=== PATIENT | female | born 1990 | race Caucasian/White ===

== ENCOUNTER 2023-08-28 16:57 | Emergency (ER) | payer OTHER, SELFPAY ==
[2023-08-28 17:05] VITALS: BP 117/80
--- NOTE | 2023-08-28 17:56 | ED.GENMED ---
History of Present Illness
General
Chief Complaint: Fainting/Passed Out
Source: patient
Time Seen by Provider: 08/28/23 17:43
Travel History
Have you had any contact with someone who has COVID-19?: No
Do you have any symptoms of coronavirus? Fever > 100 degrees, chills, cough, shortness of breath, sore throat, loss of taste or smell, muscle aches, or headache?: No
History of Present Illness
History of Present Illness:
33-year-old female presenting to the emergency department for evaluation after a syncopal episode around 230 this afternoon. Patient reports that multiple family members have been home sick with upper respiratory symptoms and GI symptoms over the
last few days. Is currently visiting this area for a work trip and staying with her in-laws. She states today she woke up feeling achy and generally unwell and had been sleeping for most of the day and had not drank or eaten anything. She was
changing their infant on the changing table when she started to feel as if she were going to pass out, lightheaded, sweaty and then woke up on the ground. Patient states she had some water, crackers and a [employer] bar on the way to the emergency
department and reports she is fully asymptomatic now. Patient has no other concerns at this time including headache, visual changes, focal weakness or numbness, chest pain or shortness of breath or any other concerns.
Past History
Past History
ED Past Medical History: None
ED Past Surgical History: None
Social History
Tobacco: Non-smoker
Alcohol: Occasional
Drug: None
Personal:
Living: with family
Employment: Employed
Review of Systems
Review of Systems
All Other Systems: ROS reviewed and negative except as documented in HPI and ROS
Phy Exam
Physical Exam
Physical Exam:
GENERAL: Alert , in no apparent distress
EYE: conjunctiva clear
NECK: Supple
ENT: o/p clr, mmm.
CARDIAC: Regular rate and rhythm
LUNGS: Clear breath sounds bilaterally, no acute respiratory distress, no wheezes/rales/rhonchi
NEUROLOGICAL: Alert and oriented
SKIN: Warm and dry, skin intact.
MUSCULOSKELETAL: well perfused.
PSYCH: Normal and appropriate interaction.
Scores
Heart Failure Risk
Heart Failure Risk Score: Not Applicable
Heart Score for Chest Pain Patients
STEMI patient?: Not applicable
Withdrawal Assessment of Alcohol
Withdrawal Assessment Completed?: Not applicable
Course
Orders/Labs/Results
Orders:
Orders
08/28/23 17:43
Electrocardiogram (*1) Urgent
Reason for Study: Syncope
EKG- Treatment ONCE
08/28/23 18:15
Basic Metabolic Panel Urgent
COVID-19 Antigen Urgent
Source: Nasal Swab
Complete Blood Count/With Diff Urgent
Influenza A+B Rapid Molecular Urgent
GREGG Source: Nasal Swab
Specimen Description:
Abnormal Lab Results
08/28/23
18:15
Absolute Neuts (auto) 6.7 H 10^3/uL
(1.4-6.5)
Absolute Lymphs (auto) 0.5 L 10^3/uL
(1.2-3.4)
Neutrophils % 88.3 H %
(42.2-75.2)
Lymphocytes % 7.0 L %
(20.5-51.1)
Sodium 134 L mmol/L
(135-145)
BUN 18 H mg/dl
(7-17)
08/28/23 18:15
08/28/23 18:15
Vital Signs
Initial and Last Documented VS:
Initial Vital Signs
Temp Pulse Resp BP Pulse Ox
98.1 F 83 20 117/80 97
08/28/23 17:05 08/28/23 17:05 08/28/23 17:05 08/28/23 17:05 08/28/23 17:05
Last Documented Vital Signs
Temp Pulse Resp BP Pulse Ox
98.1 F 75 16 113/70 99
08/28/23 17:05 08/28/23 18:48 08/28/23 18:48 08/28/23 18:48 08/28/23 18:48
MDM/Problems Addressed
Differential Diagnosis Includes:
Vasovagal syncope, orthostasis, electrolyte disturbance, cardiac dysrhythmia
MDM/Problems Addressed:
33-year-old female present emergency department for evaluation following syncopal episode around 230 today. Reports she is asymptomatic. Notes prodromal symptoms prior to syncope. I do not have much suspicion for any emergent pathologies however
will check labs and an EKG. Reassessment following but anticipate discharge home. COVID and flu testing also ordered sick contacts over the last week.
*Pulse Oximetry
Patient hypoxic: no
*EKG
Interpreted by ED Provider?: Yes
Comparison EKG: no comparison EKG present
Heart Rate: 69
Rate: normal
Rhythm: sinus
Amma: normal axis
Ischemia: no ischemia
*Critical Care Note
Total Time (30-74mins, 75-104mins- exclusive of procedures): Not Applicable
Patient Management
Escalation/DeEscalation of care consider admission/obs:
Patient's workup is largely unremarkable. She is tolerating p.o. and remains asymptomatic. COVID and flu negative. Stable for discharge home and aware of return precautions.
ED Attending Note
-
Portions of this chart may have been created with voice recognition software.� Occasional wrong word or��sound alike� substitutions may have occurred due to the inherent limitations of voice recognition software.
Discharge Plan
Departure
Patient Disposition: Home (Routine Discharge)
Date of Disposition: 08/28/23
Time of Disposition: 18:44
Patient with high blood pressure during this ER visit?: No
Discharge Problem:
Syncope
Instructions: Syncope (Fainting) (DC)
Referrals:
PRIVATE,PHYSICIAN [Family Provider] -
Interventions
Interventions:
*Risk Screen - Suicide Last Done: 08/28/23 17:05
*General Assessment Last Done: 08/28/23 18:47
*Neglect/Abuse Screening Last Done: 08/28/23 17:10
ED- Fall Risk Assessment Last Done: 08/28/23 18:47
*ED COVID-19 Vaccine History Last Done: 08/28/23 18:47
*Nursing Disposition Last Done: 08/28/23 18:51
ED- Cardiac Assessment Last Done: 08/28/23 18:19
ED- Neurological Assessment Last Done: 08/28/23 18:19
Discharge Date and Time
Discharge Date/Time: 08/28/23 18:51
[2023-08-28 18:26] LABS: % Basophils 0.3 % (0-2); % Eosinophils 0.5 % (0-6); % Immature Granulocytes 0.5 % (0-0.5); % Monocytes 3.4 % (1.7-9.3); % Neutrophils 88.3 % (42.2-75.2); Absolute Lymphocytes 0.5 10^3/uL (1.2-3.4); Absolute Monocytes 0.3 10^3/uL (0.1-0.6); Absolute Neutrophils 6.7 10^3/uL (1.4-6.5); Hemoglobin 14.6 g/dL (12.0-16.0); Mean Corp Hgb Conc. 34.8 g/dL (33.0-37.0); Mean Corpuscular Hgb 30.7 pg (27.0-31.0); Mean Corpuscular Volume 88.4 fL (81.0-99.0); Mean Platelet Volume 9.5 fL (7.4-10.4); Nucleated Red Blood Cells % 0 %; Platelet Count 194 10^3/uL (130-400); Red Blood Cell Count 4.75 10^6/uL (4.20-5.40); Red Cell Dist. Width 12.5 % (11.5-14.5); White Blood Cell Count 7.6 10^3/uL (4.8-10.8)
[2023-08-28 18:34] LABS: Blood Urea Nitrogen 18 mg/dl (7-17); Calcium 8.7 mg/dl (8.4-10.2); Carbon Dioxide 23 mmol/L (22-30); Chloride 106 mmol/L (98-107); Glucose 92 mg/dl (70-99); Potassium 4.1 mmol/L (3.5-5.1); Sodium 134 mmol/L (135-145); eGFR > 60.00
[2023-08-28 18:40] LABS: COVID-19 Antigen Negative (Negative)
[2023-08-28 18:48] VITALS: BP 113/70
== END 2023-08-28 18:51 | disposition home or self-care (01) ==
LOC: EMR 16:57
PROVIDERS: Physician Assistant Medical; EMERGENCY PHYSICIAN Emergency Medicine
DX: R55 Syncope and collapse (principal); R42 Dizziness and giddiness; Z11.52 Encounter for screening for COVID-19
CPT/HCPCS: 99284; 80048; 85025; 87502; 87811; 93005